=== PATIENT | male | born 1945 | race Caucasian/White ===

== ENCOUNTER 2017-05-29 00:28 | Emergency (ER) | payer OTHER, MEDICAID ==
[~2017-05-29] VITALS: Ht 162.6 cm; Wt 81.5 kg
[2017-05-29 00:31] VITALS: Ht 162.6 cm; Wt 81.5 kg
--- NOTE | 2017-05-29 01:31 | ERA ---
ER Documentation Chief Complaint Date/Time DATE: 05/29/17 TIME: 01:30 Chief Complaint shortness of breath, productive cough x 1 week HPI The patient is a 71-year-old male, presenting to the ER because of acute dyspnea and dry cough for 1 week. He had similar symptoms previously, denies fever, chills, neck pain, chest pain, abdominal pain, vomiting, dysuria, diarrhea. He does not smoke nor drink Past medical history: Diabetes mellitus, hypertension Past surgical history: None ROS All systems reviewed and are negative except as per history of present illness. Medications Home Meds Active Scripts Dextromethorphan Hb-Promethazine Hcl* (Promethazine DM* Syrup) 473 Ml Syrup, 10 ML PO Q6 Y for COUGH, #120 ML Prov:ANA MARIA COTTO MD 05/29/17 Reported Medications Tamsulosin Hcl* (Tamsulosin Hcl*) 0.4 Mg Cap.er.24h, 0.4 MG PO DAILY, CAP 05/29/17 Lovastatin* (Lovastatin*) 10 Mg Tablet, 10 MG PO HS, TAB 05/29/17 Spironolactone* (Spironolactone*) 100 Mg Tablet, 100 MG PO DAILY, TAB 05/29/17 Cyanocobalamin* (Vitamin B12*) 500 Mcg Tab, 500 MCG PO DAILY, TAB 05/29/17 Cyanocobalamin (Vitamin B-12) (Vitamin B-12) 500 Mcg Tab.subl, 500 MCG SL 05/29/17 Aspirin* (Aspirin* EC) 81 Mg Tablet.dr, 81 MG PO DAILY, TAB 05/29/17 Discontinued Reported Medications Blood Sugar Diagnostic (Glucocom Glucose) 1 Each Strip, 1 EACH MC, STRIP 05/29/17 Allergies Allergies: Coded Allergies: No Known Drug Allergies (Verified Allergy, Unknown, 05/29/17) PMhx/Soc History of Surgery: No Hx Neurological Disorder: No Hx Respiratory Disorders: No Hx Cardiac Disorders: Yes (htn) Hx Miscellaneous Medical Probl: No Hx Alcohol Use: No Hx Substance Use: No Hx Tobacco Use: No Physical Exam Vitals Vital Signs Date Time Temp Pulse Resp B/P Pulse Ox O2 Delivery O2 Flow Rate FiO2 05/29/17 00:31 97.9 83 20 133/66 95 Physical Exam Const: No acute distress. Head: Atraumatic. Eyes: Normal Conjunctiva. ENT: Normal External Ears, Nose and Mouth. Neck: Full range of motion. No meningismus. Resp: Clear to auscultation bilaterally. Cardio: Regular rate and rhythm. Abd: Soft, non distended, normal bowel sounds, non tender. Skin: No petechiae or rashes. Back: No midline or flank tenderness. Ext: No cyanosis, or edema. Neur: Awake and alert. No focal deficit Psych: Normal Mood and Affect. Result Diagram: 05/29/1719905/29/17199 Results 24 hrs Laboratory Tests Test 05/29/17 02:00 White Blood Count 7.610^3/ul Red Blood Count 4.4610^6/ul Hemoglobin 13.1g/dl Hematocrit 39.2% Mean Corpuscular Volume 87.9fl Mean Corpuscular Hemoglobin 29.4pg Mean Corpuscular Hemoglobin Concent 33.4g/dl Red Cell Distribution Width 13.5% Platelet Count 21274^3/UL Mean Platelet Volume 9.4fl Neutrophils % 51.1% Lymphocytes % 33.4% Monocytes % 10.7% Eosinophils % 3.8% Basophils % 0.5% Nucleated Red Blood Cells % 0.0/100WBC Neutrophils # 3.910^3/ul Lymphocytes # 2.510^3/ul Monocytes # 0.810^3/ul Eosinophils # 0.310^3/ul Basophils # 0.010^3/ul Nucleated Red Blood Cells # 0.010^3/ul Prothrombin Time 16.3Sec Prothrombin Time Ratio 1.3 INR International Normalized Ratio 1.30 Activated Partial Thromboplast Time 29.9Sec Sodium Level 137mmol/L Potassium Level 3.8mmol/L Chloride Level 102mmol/L Carbon Dioxide Level 29mmol/L Anion Gap 10 Blood Urea Nitrogen 16mg/dl Creatinine 1.10mg/dl Glucose Level 136mg/dl Calcium Level 9.2mg/dl Troponin I < 0.012ng/ml B-Type Natriuretic Peptide 38PG/ML [place] [id number] Radiology Main Line: [phone] DIAGNOSTIC IMAGING REPORT Patient: ITZEL HANSEN : 1945 Age: 71 Sex: M MR #: [id number] DOS: 05/29/17 0136 Ordering MD: ANA MARIA COTTO MD Location: E/R Room/Bed: PROCEDURE: Chest. CLINICAL INDICATION: Shortness of breath. TECHNIQUE: Single frontal view of the chest was obtained. COMPARISON: None. FINDINGS: The cardiac silhouette is within normal limits. The aortic arch is unremarkable. There is no focal consolidation, vascular congestion or pleural effusion. There is no pneumothorax. IMPRESSION: No evidence for active cardiopulmonary disease. .Xavi Eisenberg MD, MD Date Time Electronically viewed and signed by .Xavi Eisenberg MD, MD on 05/29/2017 02:13 .T/ CC: ANA MARIA COTTO MD EKG: Read by emergency physician Rate/Rhythm: Normal Sinus Rhythm 67 beats/min QRS, ST, T-waves: No ST elevation, no T inversion Impression: Normal EKG MEDICAL MAKING DECISION: The patient is a 71-year-old male, presenting with cough of unclear etiology. He is stable for outpatient follow-up The differential diagnoses considered include but are not limited to asthma, COPD, pneumonia, pulmonary embolus, pleural effusion, congestive heart failure. Departure Diagnosis: Primary Impression: Cough Additional Impression: Anemia Condition: Good Comments He was discharged with Phenergan DM I discussed the findings with the patient. I advised the patient to follow-up with the primary physician in about 1-2 days, sooner if needed and return if any concern. ANA MARIA COTTO MD May 29, 2017 01:31
--- NOTE | 2017-05-29 02:13 | RADRPT ---
PROCEDURE: Chest. CLINICAL INDICATION: Shortness of breath. TECHNIQUE: Single frontal view of the chest was obtained. COMPARISON: None. FINDINGS: The cardiac silhouette is within normal limits. The aortic arch is unremarkable. There is no focal consolidation, vascular congestion or pleural effusion. There is no pneumothorax. IMPRESSION: No evidence for active cardiopulmonary disease. .Xavi Eisenberg MD, MD Date Time Electronically viewed and signed by .Xavi Eisenberg MD, on 05/29/2017 02:13 .T/
[2017-05-29 02:41] LABS: BASOPHILS % 0.5 % (0.0-2.0); EOSINOPHILS # 0.3 10^3/ul (0.0-0.5); EOSINOPHILS % 3.8 % (0.0-7.0); HEMATOCRIT 39.2 % (42.0-52.0); HEMOGLOBIN 13.1 g/dl (14.0-18.0); LYMPHOCYTES # 2.5 10^3/ul (0.8-2.9); LYMPHOCYTES % 33.4 % (15.0-51.0); MEAN CORPUSCULAR HEMOGLOBIN 29.4 pg (29.0-33.0); MEAN CORPUSCULAR HGB CONC 33.4 g/dl (32.0-37.0); MEAN CORPUSCULAR VOLUME 87.9 fl (82.0-101.0); MEAN PLATELET VOLUME 9.4 fl (7.4-10.4); MONOCYTE # 0.8 10^3/ul (0.3-0.9); MONOCYTES % 10.7 % (0.0-11.0); NEUTROPHIL # 3.9 10^3/ul (1.6-7.5); NEUTROPHILS % 51.1 % (39.0-77.0); PLATELET COUNT 218 10^3/UL (140-415); RED BLOOD COUNT 4.46 10^6/ul (4.70-6.10); RED CELL DISTRIBUTION WIDTH 13.5 % (11.5-14.5); WHITE BLOOD COUNT 7.6 10^3/ul (4.8-10.8)
[2017-05-29 02:56] LABS: INR 1.3; PROTIME 16.3 Sec (12.2-14.2); PT RATIO 1.3
[2017-05-29 02:57] LABS: PARTIAL THROMBOPLASTIN TIME 29.9 Sec (25.0-35.0)
[2017-05-29 02:58] LABS: ANION GAP 10 (8-16); BLOOD UREA NITROGEN 16 mg/dl (7-20); CALCIUM 9.2 mg/dl (8.4-10.2); CARBON DIOXIDE 29 mmol/L (21-31); CHLORIDE 102 mmol/L (97-110); GLUCOSE 136 mg/dl (70-220); POTASSIUM 3.8 mmol/L (3.5-5.1); SODIUM 137 mmol/L (135-144)
[2017-05-29 03:11] LABS: B-TYPE NATRIURETIC PEPTIDE 38 PG/ML (0-125)
[2017-05-29] MEDS ORDERED: SPIR100T31 PO (03:11)
[2017-05-29] MEDS ORDERED: LOVA10TA63 PO (03:11)
[2017-05-29] MEDS ORDERED: CYAN500T46 PO (03:11)
[2017-05-29] MEDS ORDERED: TAMS0.4C2 PO (03:11)
[2017-05-29] MEDS ORDERED: ASPI-664 PO (03:11)
[2017-05-29] MEDS ORDERED: CYAN500T44 SL (03:11)
[2017-05-29] MEDS ORDERED: BLOO1STR MC (03:11)
[2017-05-29 03:23] LABS: TROPONIN-I < 0.012 ng/ml (0.00-0.12)
[2017-05-29] MEDS ORDERED: D-ME473S2 PO (03:32)
[2017-05-29 04:00] VITALS: BP 131/70; PULSE 65; RESP 18; TEMP 97.9
== END 2017-05-29 04:05 | disposition home or self-care (01) ==
LOC: E/R 00:28
DX: D64.9 Anemia, unspecified (principal); R05 Cough; I10 Essential (primary) hypertension; E11.9 Type 2 diabetes mellitus without complications; Z79.82 Long term (current) use of aspirin
CPT/HCPCS: 36415; 71010; 80048; 83880; 84484; 85025; 85610; 85730; 93005

== ENCOUNTER 2017-06-01 23:35 | Emergency (ER) | payer OTHER, MEDICAID ==
[~2017-06-01] VITALS: Ht 165.1 cm; Wt 80.5 kg
[~2017-06-01 23:35] MED LIST: ASPI-664 PO; CYAN500T44 SL; CYAN500T46 PO; D-ME473S2 PO; LOVA10TA63 PO; SPIR100T31 PO; TAMS0.4C2 PO
[2017-06-01 23:39] VITALS: Ht 165.1 cm; Wt 80.5 kg
--- NOTE | 2017-06-03 06:10 | EN ---
Date/Time of Note Date/Time of Note DATE: 06/03/17 TIME: 06:10 ER Progress Note patient left without being seen. PANCHITO SILVA NP Jun 03, 2017 06:10
--- NOTE | 2017-06-03 06:10 | EN ---
Date/Time of Note Date/Time of Note DATE: 06/03/17 TIME: 06:10 ER Progress Note patient left without being seen. PANCHITO SILVA NP Jun 03, 2017 06:10
--- NOTE | 2017-06-03 06:10 | EN ---
Date/Time of Note Date/Time of Note DATE: 06/03/17 TIME: 06:10 ER Progress Note patient left without being seen. PANCHITO SILVA NP Jun 03, 2017 06:10
[2017-06-09] MEDS ORDERED: ALBU18HF INHALATION (03:33)
[2017-06-09] MEDS ORDERED: PRED20TA PO (03:33)
== END 2017-06-02 02:25 | disposition left against medical advice (07) ==
LOC: FTE 23:35
DX: Z53.21 Procedure and treatment not carried out due to patient leaving prior to being seen by health care provider (principal)

== ENCOUNTER 2017-06-06 23:55 | Emergency (ER) | payer OTHER, MEDICAID ==
[~2017-06-06] VITALS: Ht 170.2 cm; Wt 81.0 kg
[2017-06-07 00:01] VITALS: Ht 170.2 cm; Wt 81.0 kg
[2017-06-07] MEDS ORDERED: IPRATROPIUM (NEB) 0.5 MG/2.5 ML AMP NEB STA (01:16)
[2017-06-07] MEDS ORDERED: ALBUTEROL 0.083% (NEB) 2.5 MG/3 ML AMP NEB STA (01:16)
--- NOTE | 2017-06-07 01:31 | ERD ---
ER Documentation Chief Complaint Date/Time DATE: 06/07/17 TIME: 01:30 Chief Complaint chest congestion and runny nose stated lots of phlegm HPI 71-year-old male presents to the emergency department for complaints of cough congestion on and off wheezing shortness of breath runny nose for the last 3 weeks now, patient was seen here in the emergency department 1 week ago, had x- rays done, was told to possibly have bronchitis, was given cough medication, continues to have the symptoms. Patient does not take any inhaler at home. Patient denies any chest pain. Patient denies any fever chills. Patient denies any leg swelling. ROS All systems reviewed and are negative except as per history of present illness. Medications Home Meds Active Scripts Azithromycin* (Zithromax*) 250 Mg Tablet, 250 MG PO .ZPACK DIRECTED, #6 TAB TAKE 500 MG (2 TABS) THE FIRST DAY THEN 250 MG (1 TAB) DAYS 2-5 Prov:PANCHITO SILVA NP 06/07/17 Cetirizine Hcl* (Zyrtec*) 10 Mg Capsule, 10 MG PO DAILY, #30 TAB.CHEW Prov:PANCHITO SILVA NP 06/07/17 Albuterol Sulfate* (Proair HFA*) 8.5 Gm Hfa.aer.ad, 2 PUFF INH Q4H Y for WHEEZING AND SOB, #1 INHALER Prov:PANCHITO SILVA NP 06/07/17 Dextromethorphan Hb-Promethazine Hcl* (Promethazine DM* Syrup) 473 Ml Syrup, 10 ML PO Q6 Y for COUGH, #120 ML Prov:ANA MARIA COTTO MD 05/29/17 Reported Medications Tamsulosin Hcl* (Tamsulosin Hcl*) 0.4 Mg Cap.er.24h, 0.4 MG PO DAILY, CAP 05/29/17 Lovastatin* (Lovastatin*) 10 Mg Tablet, 10 MG PO HS, TAB 05/29/17 Spironolactone* (Spironolactone*) 100 Mg Tablet, 100 MG PO DAILY, TAB 05/29/17 Cyanocobalamin* (Vitamin B12*) 500 Mcg Tab, 500 MCG PO DAILY, TAB 05/29/17 Cyanocobalamin (Vitamin B-12) (Vitamin B-12) 500 Mcg Tab.subl, 500 MCG SL 05/29/17 Aspirin* (Aspirin* EC) 81 Mg Tablet.dr, 81 MG PO DAILY, TAB 05/29/17 Allergies Allergies: Coded Allergies: No Known Drug Allergies (Verified Allergy, Unknown, 05/29/17) PMhx/Soc History of Surgery: No Anesthesia Reaction: No Hx Neurological Disorder: No Hx Respiratory Disorders: No Hx Cardiac Disorders: Yes (HTN) Hx Psychiatric Problems: No Hx Miscellaneous Medical Probl: Yes (DM) Hx Alcohol Use: No Hx Substance Use: No Hx Tobacco Use: Yes FmHx Family History: No coronary disease, No diabetes, No other Physical Exam Vitals Vital Signs Date Time Temp Pulse Resp B/P Pulse Ox O2 Delivery O2 Flow Rate FiO2 06/07/17 04:02 97.8 104 18 127/60 94 Room Air 06/07/17 03:35 99 18 92 21 06/07/17 01:36 79 18 94 21 06/07/17 00:01 98.3 87 20 134/62 95 Physical Exam GENERAL: The patient is well developed and appropriate for usual state of health, in no apparent distress. CHEST: Diffuse wheezing noted bilaterally. There are no rales, or rhonchi. HEART: Regular rate and rhythm. No murmurs, clicks, rubs or gallops. No S3 or S4. ABDOMEN: Soft, nontender and nondistended. Good bowel sounds. No rebound or guarding. No gross peritonitis. No gross organomegaly or masses. No Figueroa sign or McBurney point tenderness. BACK: No midline or flank tenderness. EXTREMITIES: Equal pulses bilaterally. There is no peripheral clubbing, cyanosis or edema. No focal swelling or erythema. Full range of motion. Grossly neurovascularly intact. NEURO: Alert and oriented. Cranial nerves 2-12 intact. Motor strength in all 4 extremities with 5/5 strength. Sensation grossly intact. Normal speech and gait. SKIN: There is no apparent rash or petechia. The skin is warm and dry. HEMATOLOGIC AND LYMPHATIC: There is no evidence of excessive bruising or lymphedema. No gross cervical, axillary, or inguinal lymphadenopathy. Results 24 hrs Current Medications Medications (Trade) Dose Ordered Sig/[place] Route PRN Reason Start Time Stop Time Status Last Admin Dose Admin Albuterol (Proventil 0.083% (Neb)) 5 mg ONCE STAT NEB 06/07/17 01:16 06/07/17 01:17 DC 06/07/17 01:35 Ipratropium Campbell (Atrovent 0.02% (Neb)) 0.5 mg ONCE STAT NEB 06/07/17 01:16 06/07/17 01:17 DC 06/07/17 01:35 Albuterol (Proventil 0.083% (Neb)) 5 mg ONCE STAT HHN 06/07/17 03:14 06/07/17 03:15 DC 06/07/17 03:28 Ipratropium [place] (Atrovent 0.02% (Neb)) 0.5 mg ONCE ONCE HHN 06/07/17 03:30 06/07/17 03:31 DC 06/07/17 03:29 Breathing treatment of albuterol and Atrovent was given here in emergency department, after treatment, patient's lungs sounds are clear and patient's oxygenation is better. Patient verbalized feeling much better. PROCEDURE: XR Chest. CLINICAL INDICATION: Asthma exacerbation. TECHNIQUE: Single frontal view of the chest. COMPARISON: None. FINDINGS: Mild cardiomegaly with atherosclerotic calcifications in the thoracic aorta. Hypoinflated lungs. Mild pulmonary vascular crowding at the lung bases secondary to hypoinflated lungs. The lungs are otherwise clear. No signs of pleural fluid or pneumothorax are seen. The osseous structures and soft tissues are unremarkable. IMPRESSION: No evidence for active cardiopulmonary disease. RPTAT: [facility] Physician Karel Date Time Electronically viewed and signed by Physician Karel on 06/07/2017 02:31 RS/ CC: PANCHITO SILVA FORESTRY AIDE Procedures/MDM Medical Decision Making: Patient symptoms are most likely consistent with acute bronchitis, which most likely is from atypical infection. There is low suspicion for Pneumonia at this time since patients lungs sounds are clear, patient O2 saturation is normal and patient doesnt show any respiratory distress. Patients chest xray doesnt show infiltrates or any other cardiopulmonary emergencies at this time. There is low suspicion for other cardiopulmonary emergencies at this time such as CHF, Pulmonary Embolism, Pneumothorax, Aortic Aneurysm or any other cardiopulmonary emergencies at this time. There is low suspicion for sepsis. Patient appears well and is hemodynamically stable. Disposition: Home. Condition: Stable Prescriptions: Proair, Zyrtec, Azithromycin, continue albuterol. Instructions: Patient is advised to take medications as prescribed. Patient is advised to rest. Patient advised to increase fluid intake, do humidifier at home and if possible, do salt water gargles. Patient is advised that if symptoms are worse, shortness of breath, uncontrolled fever, stridor, vomiting, worst signs and symptoms to return to emergency department immediately. Otherwise, patient is advised to follow up with primary doctor in 5-7 days. Disclaimer: Inadvertent spelling and grammatical errors are likely due to EHR/ dictation software use and do not reflect on the overall quality of patient care. Also, please note that the electronic time recorded on this note does not necessarily reflect the actual time of the patient encounter. Departure Diagnosis: Primary Impression: Acute bronchitis Bronchitis organism: unspecified organism Qualified Code: J20.9 - Acute bronchitis, unspecified organism Condition: Stable Patient Instructions: Bronchitis With Wheezing (Adult) Additional Instructions: Patient is advised to take medications as prescribed. Patient is advised to rest. Patient advised to increase fluid intake, do humidifier at home and if possible, do salt water gargles. Patient is advised that if symptoms are worse, shortness of breath, uncontrolled fever, stridor, vomiting, worst signs and symptoms to return to emergency department immediately. Otherwise, patient is advised to follow up with primary doctor in 5-7 days. PANCHITO SILVA NP Jun 07, 2017 01:31
--- NOTE | 2017-06-07 02:31 | RADRPT ---
PROCEDURE: XR Chest. CLINICAL INDICATION: Asthma exacerbation. TECHNIQUE: Single frontal view of the chest. COMPARISON: None. FINDINGS: Mild cardiomegaly with atherosclerotic calcifications in the thoracic aorta. Hypoinflated lungs. Mil d pulmonary vascular crowding at the lung bases secondary to hypoinflated lungs. The lungs are other perdomo clear. No signs of pleural fluid or pneumothorax are seen. The osseous structures and soft tiss ues are unremarkable. IMPRESSION: No evidence for active cardiopulmonary disease. RPTAT: [facility] Physician Karel Date Time Electronically viewed and signed by Physician Karel on 06/07/2017 02:31 RS/
[2017-06-07] MEDS ORDERED: CETI10CA PO (03:01)
[2017-06-07] MEDS ORDERED: ALBU8.5H3 INH (03:01)
[2017-06-07] MEDS ORDERED: AZIT250T94 PO (03:01)
[2017-06-07] MEDS ORDERED: ALBUTEROL 0.083% (NEB) 2.5 MG/3 ML AMP HHN STA (03:14)
[2017-06-07] MEDS ORDERED: IPRATROPIUM (NEB) 0.5 MG/2.5 ML AMP HHN ONE (03:30)
[2017-06-07 04:02] VITALS: BP 127/60; PULSE 104; RESP 18; TEMP 97.8
[2017-06-09] MEDS ORDERED: PRED20TA PO (03:33)
[2017-06-09] MEDS ORDERED: ALBU18HF INHALATION (03:33)
== END 2017-06-07 04:00 | disposition home or self-care (01) ==
LOC: FTE 23:55
DX: J20.9 Acute bronchitis, unspecified (principal); I10 Essential (primary) hypertension; E11.9 Type 2 diabetes mellitus without complications; Z87.891 Personal history of nicotine dependence; Z79.82 Long term (current) use of aspirin
CPT/HCPCS: 71010; 94640; 94664

== ENCOUNTER 2017-06-09 00:52 | Emergency (ER) | END 2017-06-09 03:55 | disposition home or self-care (01) | DX: R05 Cough (principal); I10 Essential (primary) hypertension; E11.9 Type 2 diabetes mellitus without complications; Z79.82 Long term (current) use of aspirin ==